=== PATIENT | male | born 1950 | race Caucasian/White ===

== ENCOUNTER 2017-02-21 14:44 | Emergency (ER) | payer OTHER ==
[~2017-02-21] VITALS: Ht 185.4 cm; Wt 101.6 kg
[~2017-02-21 14:44] MED LIST: ASPIR 8181 M1 PO; CIDAFLEX TABLE1 EACH PO; COUMADIN1 MG PO; LOVENOX100 MG/1 M SC; MELOXICAM15 MG PO; STOOL SOFTENER100 MG PO; TENORETIC 101 TABLET PO
[2017-02-21] MEDS ORDERED: ULTRAM50 MG PO (16:57)
[2017-02-21 17:12] VITALS: BP 162/84
== END 2017-02-21 17:13 | disposition home or self-care (01) ==
LOC: EME 14:44
DX: S83.91XA Sprain of unspecified site of right knee, initial encounter (principal); X58.XXXA Exposure to other specified factors, initial encounter; I10 Essential (primary) hypertension; Z86.718 Personal history of other venous thrombosis and embolism
CPT/HCPCS: 73564; 99281; 99284